=== PATIENT | male | born 1985 | race African-American/Black ===

== ENCOUNTER 2020-12-09 10:08 | Emergency (ER) | payer OTHER ==
[~2020-12-09] VITALS: Ht 180.3 cm; Wt 90.7 kg
[2020-12-09] MEDS ORDERED: CIALIS10 MG ORAL (10:22)
[2020-12-09] MEDS ORDERED: Pseudoephedrine 30mg tab ORAL ONE (10:45)
[2020-12-09] MEDS ORDERED: Ketorolac 30mg Inj IV ONE (10:45)
--- NOTE | 2020-12-09 10:50 | Emergency Room Report ---
History of Present Illness General Chief Complaint: Upper Respiratory Illness Source: Patient Present Illness HPI Patient is a 35-year-old male denies any significant past medical history who presents to the ER with multiple complaints. Patient's primary complaint is just not feeling well. He states that he has had substernal chest pain on and off for the past year which he attributes to working out but states that he has not had it checked out yet. He does state that his mother suffered from early cardiovascular disease under the age of 50. Patient admits to smoking "a lot of marijuana". Patient denies any shortness of breath. He denies any cough but st ates that he has white thick mucus. He also complains of throat pain, bilateral ears being clogged and lymph node swelling along his neck. He denies any drooling or changes to his voice. he denies any neck stiffness. He denies any recent travel. He denies any sick contacts. He denies any lower extremity pain or edema. He denies any exercise intolerance. Allergies: Coded Allergies: No Known Allergies (Unverified , 12/09/20) COVID-19 Screening Contact w/high risk pt: No Experienced COVID-19 symptoms?: Yes COVID-19 Testing performed [employer]: Yes COVID-19 Screening: Negative COVID-19 COVID-19 Testing Source: unk oct 2020 Patient History Reviewed Nursing Documentation: PMH: Agreed; PSxH: Agreed Nursing Documentation-PMH Past Medical History: No History, Except For Review of Systems All Other Systems: negative except mentioned in HPI Physical Exam Vital Signs Date Time Temp Pulse Resp B/P (MAP) Pulse Ox O2 Delivery O2 Flow Rate FiO2 12/09/20 10:15 97.7 66 20 133/84 (100) 95 Room Air Sp02 EP Interpretation: reviewed, normal General Appearance: no apparent distress, alert, GCS 15, non-toxic Head: normocephalic, atraumatic Eyes: bilateral eye normal inspection, bilateral eye PERRL ENT: TMs + canals normal, moist mucus membranes, other - Patient has bilateral pharyngeal erythema but no tonsillar swelling or tonsillar exudate no peritonsillar abscess or cellulitis Neck: full range of motion, supple, no meningismus, other - Bilateral tender cervical lymphadenopathy Respiratory: chest non-tender, lungs clear, normal breath sounds Cardiovascular #1: regular rate, rhythm Gastrointestinal: non tender, soft Rectal: deferred Musculoskeletal: normal range of motion 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 Aortic dissection was considered but in the physical exam the patient has equal pulses in all extremities, no new focal neurological deficits, no apparent diastolic murmur on the cardiac exam, and no widening of the mediastinum on CXR. Pulmonary embolism was also considered however I believe patient to be low risk given negative d-dimer, normal heart rate, no evidence of hypoxemia, no significant unilateral leg swelling, no recent travel, no history of cancer, no right axis deviation on EKG, and no recent surgery. I also doubt that this is acute coronary syndrome since EKG shows no STEMI, troponin is normal x 1, and the patients chest pain has resolved. Patient has mild pharyngeal erythema with no peritonsillar abscess, no difficulty swallowing, no drooling, no neck stiffness and no changes to his voice. I have given him penicillin VK for presumed strep pharyngitis as he also has tender lymphadenopathy and no cough. I explained to the patient that I would like to repeat troponin in 3 hours due to his concern of chest pain. He states that he needs to go home. The patient is of adult age and has sound mind with no evidence of altered mental status suggesting metabolic or infections etiologies. I explained in layman's terms the risk of leaving against medical advise including and significant comorbidity. The patient was given reasonable options. This was explained in front of the patient and the bedside nurse TIMMY Rowland. The AMA for was signed and witnessed by a nurse and the patient. Laboratory Tests Test 12/09/20 11:47 White Blood Count 8.7 K/UL (4.8-10.8) Red Blood Count 5.67 M/UL (4.70-6.10) Hemoglobin 16.5 G/DL (14.2-18.0) Hematocrit 50.7 % (42.0-52.0) Mean Corpuscular Volume 89 FL (80-99) Mean Corpuscular Hemoglobin 29.0 PG (27.0-31.0) Mean Corpuscular Hemoglobin Concent 32.5 G/DL (32.0-36.0) Red Cell Distribution Width 12.7 % (11.6-14.8) Platelet Count 323 K/UL (150-450) Mean Platelet Volume 7.1 FL (6.5-10.1) Neutrophils (%) (Auto) 64.1 % (45.0-75.0) Lymphocytes (%) (Auto) 25.3 % (20.0-45.0) Monocytes (%) (Auto) 8.6 % (1.0-10.0) Eosinophils (%) (Auto) 1.0 % (0.0-3.0) Basophils (%) (Auto) 0.9 % (0.0-2.0) Prothrombin Time 10.1 SEC (9.30-11.50) Prothrombin Time INR 0.9 (0.9-1.1) Activated Partial Thromboplast Time 29 SEC (23-33) D-Dimer 0.19 mg/L FEU (0.00-0.49) Sodium Level 141 MMOL/L (136-145) Potassium Level 4.2 MMOL/L (3.5-5.1) Chloride Level 105 MMOL/L (98-107) Carbon Dioxide Level 26 MMOL/L (21-32) Anion Gap 10 mmol/L (5-15) Blood Urea Nitrogen 17 mg/dL (7-18) Creatinine 1.1 MG/DL (0.55-1.30) Estimated Glomerular Filtration Rate > 60 mL/min (>60) Glucose Level 86 MG/DL (74-106) Lactic Acid Level 1.30 mmol/L (0.4-2.0) Calcium Level 9.4 MG/DL (8.5-10.1) Magnesium Level 2.1 MG/DL (1.8-2.4) Total Bilirubin 0.5 MG/DL (0.2-1.0) Aspartate Amino Transferase (AST) 25 U/L (15-37) Alanine Aminotransferase (ALT) 33 U/L (12-78) Alkaline Phosphatase 79 U/L (46-116) Troponin I 0.003 ng/mL (0.000-0.056) Pro-B-Type Natriuretic Peptide 44 pg/mL (0-125) Total Protein 7.3 G/DL (6.4-8.2) Albumin 4.1 G/DL (3.4-5.0) Globulin 3.2 g/dL Albumin/Globulin Ratio 1.3 (1.0-2.7) Microbiology Date/Time Source Procedure Growth Status 12/09/20 11:35 Nasopharynx SARS-CoV-2 Antigen (Rapid)([facility]) - Final Complete EKG Diagnostic Results Troponin ordered: Yes When was troponin ordered?: Dec 09, 2020 EKG Time: 11:21 EP Interpretation: Mary Ann Nelson MD Rate: bradycardiac - 52 bpm Rhythm: other - Sinus bradycardia ST Segments: no acute changes ASA given to the pt in ED: Yes Chest X-Ray Diagnostic Results Chest X-Ray Diagnostic Results : Chest X-Ray Ordered: Yes # of Views/Limited/Complete: 1 View Indication: Chest Pain EP Interpretation: Yes Interpretation: no consolidation, no effusion, no pneumothorax, no acute cardiopulmonary disease Impression: No acute disease Electronically Signed by: Mary Ann Nelson MD Last Vital Signs Date Time Temp Pulse Resp B/P (MAP) Pulse Ox O2 Delivery O2 Flow Rate FiO2 12/09/20 10:15 97.7 66 20 133/84 (100) 95 Room Air Disposition: AGAINST MEDICAL ADVICE Condition: Unknown Scripts Penicillin V Potassium* (PENVK*) 500 Mg Tablet 500 MG PO Q8HR for 10 Days, TAB 0 Refills Prov: Mary Ann Nelson M.D. 12/09/20 Ibuprofen* (MOTRIN*) 600 Mg Tablet 600 MG ORAL FOUR TIMES A DAY, #30 TAB 0 Refills Prov: Mary Ann Nelson M.D. 12/09/20 Referrals: [facility],REFERRING (PCP) Additional Instructions: Please note that this report is being documented using [employer] technology. This can lead to erroneous entry secondary to incorrect interpretation by the dictating instrument. MaryA nn Nelson M.D. Dec 09, 2020 10:50
[2020-12-09 11:26] VITALS: BP 133/84
[2020-12-09] MEDS ORDERED: Aspirin Baby 81mg ORAL ONE (11:30)
--- NOTE | 2020-12-09 12:00 | NUR ---
pt arrives to ER with complaints of chest pain and sore throat.
[2020-12-09 12:09] LABS: ANION GAP 10 mmol/L (5-15); BLOOD UREA NITROGEN 17 mg/dL (7-18); CALCIUM 9.4 MG/DL (8.5-10.1); CARBON DIOXIDE 26 MMOL/L (21-32); CHLORIDE 105 MMOL/L (98-107); CREATININE 1.1 MG/DL (0.55-1.30); POTASSIUM 4.2 MMOL/L (3.5-5.1); SODIUM 141 MMOL/L (136-145)
[2020-12-09 12:16] LABS: ALANINE AMINOTRANSFERASE 33 U/L (12-78); ALBUMIN 4.1 G/DL (3.4-5.0); ALBUMIN/GLOBULIN RATIO 1.3 (1.0-2.7); ALKALINE PHOSPHATASE 79 U/L (46-116); ASPARTATE AMINO TRANSFERASE 25 U/L (15-37); BASOPHILS % (AUTO) 0.9 % (0.0-2.0); BILIRUBIN,TOTAL 0.5 MG/DL (0.2-1.0); HEMATOCRIT 50.7 % (42.0-52.0); HEMOGLOBIN 16.5 G/DL (14.2-18.0); LYMPHOCYTES % (AUTO) 25.3 % (20.0-45.0); MEAN CORPUSCULAR VOLUME 89 FL (80-99); MONOCYTES % (AUTO) 8.6 % (1.0-10.0); NEUTROPHILS % (AUTO) 64.1 % (45.0-75.0); PLATELET COUNT 323 K/UL (150-450); RED BLOOD COUNT 5.67 M/UL (4.70-6.10); RED CELL DISTRIBUTION WIDTH 12.7 % (11.6-14.8); WHITE BLOOD COUNT 8.7 K/UL (4.8-10.8)
--- NOTE | 2020-12-09 12:17 | Diagnostic Imaging Report ---
Indication: Chest pain Technique: XRAY Chest 1v Comparison: None Findings: Heart size and mediastinal contours are within normal limits for AP technique. There is no focal airspace consolidation, pneumothorax or pleural effusion. Osseous structures demonstrate no acute abnormality. Impression: No radiographic evidence of acute cardiopulmonary disease.
[2020-12-09 12:19] LABS: INR 0.9 (0.9-1.1)
[2020-12-09] MEDS ORDERED: Penicillin Vk 250mg tab ORAL ONE (12:30)
[2020-12-09] MEDS ORDERED: PENICILLIN V P500 MG PO (12:53)
[2020-12-09] MEDS ORDERED: IBUPROFEN600 M1 ORAL (12:53)
--- NOTE | 2020-12-09 13:28 | NUR ---
pt requests to leave at this time. provider notified, pt signed AMA ,vital signs updated.
== END 2020-12-09 13:29 | disposition left against medical advice (07) ==
LOC: EMR 10:37
DX: R07.9 Chest pain, unspecified (principal); F12.20 Cannabis dependence, uncomplicated; J02.9 Acute pharyngitis, unspecified; Z53.29 Procedure and treatment not carried out because of patient's decision for other reasons
CPT/HCPCS: 36415; 71045; 80053; 83605; 83735; 83880; 84484; 85025; 85379; 85610; 85730; 87040; 93005; 96361; 96374; J1885; J7030; Z7502; 99284; C9399